=== PATIENT | female | born 1970 | race Caucasian/White ===

== ENCOUNTER 2016-09-03 16:44 | Emergency (ER) | payer OTHER | END 2016-09-03 17:35 | disposition left against medical advice (07) | LOC: UCCORT 16:44 | DX: G43.909 Migraine, unspecified, not intractable, without status migrainosus (principal) ==

== ENCOUNTER 2017-12-21 16:35 | Emergency (ER) | payer BC, OTHER ==
[2017-12-21 17:32] VITALS: BP 129/76
--- NOTE | 2017-12-21 18:02 | UC ---
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 No numbness or tingling in arms--strength equal in both arms - History of Current Complaint Chief Complaint: UCBackPain Stated Complaint: NECK PAIN Time Seen by Provider: 12/21/17 17:56 Hx Obtained From: Patient Hx Last Menstrual Period: 12/16/17 ?: No Onset/Duration Of Injury/Symptoms: Days - 2-3 Mechanism Of Injury: No Known Trauma Timing: Constant Onset/Duration: Sudden Onset Pain Intensity: 4 Pain Scale Used: 0-10 Numeric Location: Discrete At: - right lateral neck Character: Aching, Stiff, Spasmotic Aggravating Factors: Position Alleviating Factors: Position Associated Signs & Symptoms: Positive: Negative Related History: Previous Neck Injury - Allergies/Home Medications Allergies/Adverse Reactions: Allergies Allergy/AdvReac Type Severity Reaction Status Date / Time MS Cefdinir [From Omnicef] Allergy Severe hives/throat Verified 01/09/16 16:39 swelling MS Iodine [Iodine] Allergy Severe internal Verified 01/09/16 16:39 hives MS Penicillins [Penicillins] Allergy Severe via Verified 01/09/16 16:39 allergy testing MS Shellfish Allergy Allergy Severe Swelling Verified 01/09/16 16:39 [Shellfish Allergy] Of Face,Lips,& Throat MS Sodium Benzoate Allergy Severe hives/throat Verified 01/09/16 16:39 [From Omnicef] swelling MS Sulfa Drugs [Sulfa Drugs] Allergy Intermediate rash/hives/ Verified 01/09/16 16:39 tachy Home Medications: Home Medications Ibuprofen TAB* [Advil TAB*] 200 mg PO Q8H PRN 12/21/17 [History Confirmed ] PMH/Surg Hx/FS Hx/Imm Hx Previously Healthy: No Psychological History: Depression - Surgical History Surgical History: Yes Surgery Procedure, Year, and Place: lumpectomy 2002 benign, right hip surgery 2014, right knee arthroscopy 2014, sinus surgery 2014 - Family History Known Family History: Negative: Cardiac Disease - Social History Occupation: Employed Full-time Lives: With Family Alcohol Use: None Substance Use Type: None Smoking Status (MU): Never Smoked Tobacco Review Of Systems Constitutional: Positive: Negative Skin: Positive: Negative Eyes: Positive: Negative ENT: Positive: Negative Respiratory: Positive: Negative Cardiovascular: Positive: Negative Gastrointestinal: Positive: Negative Genitourinary: Positive: Negative Musculoskeletal: Positive: Arthralgia - right lateral neck Neurological: Positive: Negative Psychological: Positive: Negative All Other Systems Reviewed And Are Negative: Yes Physical Exam Triage Information Reviewed: Yes Appearance: Well-Nourished, Ill-Appearing, Pain Distress - mild Vital Signs: Initial Vital Signs Temp 99.8 F 12/21/17 17:25 Pulse 79 12/21/17 17:25 Resp 16 12/21/17 17:25 BP 129/76 12/21/17 17:25 Pulse Ox 99 12/21/17 17:25 Vital Signs Reviewed: Yes Eye Exam: Normal Eyes: Positive: Conjunctiva Clear ENT Exam: Normal ENT: Positive: Normal ENT inspection, Hearing grossly normal, TMs normal. Negative: Nasal congestion, Trismus, Muffled voice, Hoarse voice Dental Exam: Normal Neck exam: Normal Neck: Positive: Supple, Nontender, No Lymphadenopathy Respiratory Exam: Normal Respiratory: Positive: Chest non-tender, No respiratory distress, No accessory muscle use Cardiovascular Exam: Normal Cardiovascular: Positive: RRR, Pulses Normal, Brisk Capillary Refill Musculoskeletal Exam: Other Musculoskeletal: Positive: Strength Intact, No Edema, ROM Limited @ - neck Neurological Exam: Normal Neurological: Positive: Alert, Muscle Tone Normal Psychological Exam: Normal Skin Exam: Normal Diagnostics - Radiology No standard instances Xray Interpretation: No Acute Changes Radiology Interpretation Completed By: ED Physician, Radiologist - Patient Name : STEFANI DUKES Medical Record# : [id number] Ordering Physician: Gely Hendricks [employer] Acct.#: [id number] : 1970 Age: 47 Sex: F Location: [facility] Exam Date: 180 ADM Status: REG ER Order Information: SP CERVICAL 4+ VWS Accession Number: [id number] CPT: 33057 INDICATION: Neck pain. DJD. COMPARISON: July 10, 2014 TECHNIQUE: Routine five-view imaging was performed FINDINGS: Bones: There are no acute bony findings. There is bony spur formation from C5 through C7 with mild disc space narrowing at both levels.. Craniocervical junction: The odontoid and atlantodental interval are normal. Alignment: Cervical spine straightening Disc spaces: The remaining disc spaces are well-maintained Soft tissues: The prevertebral soft tissues are normal. 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 <Electronically signed by Edinson Henry MD in OV> 12/21/171844 Dictated By: Edinson Henry MD Dictated Date/Time: 12/21/171844 Transcribed Date/Time: 12/21/171843 Copy to: CC:Gely Hendricks NP; Moris Albrecht MD; Jj Holguin MD Imaging - [facility] - [facility] [address] [place] [address] ph [phone] ph ([phone] ph ([phone]) 1 of 1 Neck Pain Course/Dx - Course Course Of Treatment: flexeril, ibuprofen, exercises for neck, follow with pcp - Differential Dx/Diagnosis Provider Diagnoses: acute on chronic cervical neck pain Discharge - Sign-Out/Discharge Documenting (check all that apply): Discharge/Admit/Transfer - Discharge Plan Condition: Stable Disposition: HOME Prescriptions: Cyclobenzaprine TAB* [Flexeril 10 MG TAB*] 10 mg PO TID PRN #20 tab PRN Reason: muscle spasm and tightness Patient Education Materials: Ibuprofen (By mouth), Acute Neck Pain (ED), Warm Compress or Soak (ED) Referrals: Moris Albrecht MD [Primary Care Provider] - If Needed - Billing Disposition and Condition Condition: STABLE Disposition: Home
--- NOTE | 2017-12-21 18:49 | RAD ---
INDICATION: Neck pain. DJD. COMPARISON: July 10, 2014 TECHNIQUE: Routine five-view imaging was performed FINDINGS: Bones: There are no acute bony findings. There is bony spur formation from C5 through C7 with mild disc space narrowing at both levels.. Craniocervical junction: The odontoid and atlantodental interval are normal. Alignment: Cervical spine straightening Disc spaces: The remaining disc spaces are well-maintained Soft tissues: The prevertebral soft tissues are normal. 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
== END 2017-12-21 19:14 | disposition home or self-care (01) ==
LOC: UCCORT 16:35
DX: M54.2 Cervicalgia (principal); Z88.1 Allergy status to other antibiotic agents; Z88.3 Allergy status to other anti-infective agents; Z88.0 Allergy status to penicillin; Z88.8 Allergy status to other drugs, medicaments and biological substances
CPT/HCPCS: 72050; 99212; G0463

== ENCOUNTER 2018-02-05 15:43 | Emergency (ER) | payer BC ==
[2018-02-05 17:04] VITALS: BP 125/85
--- NOTE | 2018-02-05 18:20 | UC ---
Neck Pain HPI - HPI Summary HPI Summary: Patient states that she's had left-sided neck pain for many years. There is no history of trauma. She came to the urgent care 6 weeks ago with the same complaint and x-ray showed osteoarthritis between C6 5 and C7. Patient takes ibuprofen 800 mg every time she has pain and it does alleviate it, but recurs promptly. She feels that she is stiff in her neck, and some positions triggered the pain but she may be looking forward without tilting her neck, and the shooting pain may recur chest as well. She states that she took Benadryl yesterday for be getting and that relaxed her neck. - History of Current Complaint Chief Complaint: UCBackPain Stated Complaint: NECK PAIN Time Seen by Provider: 02/05/18 17:56 Hx Obtained From: Patient Hx Last Menstrual Period: 01/22/18 ?: Yes Mechanism Of Injury: No Known Trauma Onset/Duration: Gradual Onset, Lasting Weeks Severity: Moderate Pain Intensity: 4 Character: Dull, Stiff, Spasmotic Aggravating Factors: Position, Movement Alleviating Factors: Heat, Ice, OTC Meds Associated Signs & Symptoms: Positive: Negative - Risk Factors Meningitis Risk Factors: Negative - Allergies/Home Medications Allergies/Adverse Reactions: Allergies Allergy/AdvReac Type Severity Reaction Status Date / Time cefdinir [From Omnicef] Allergy Hives/Diff. Verified 02/05/18 17:09 Breathing/I tching iodine Allergy Hives Verified 02/05/18 17:09 Penicillins Allergy See Comment Verified 02/05/18 17:09 shellfish derived Allergy Hives Verified 02/05/18 17:09 Sulfa (Sulfonamide Allergy Hives/Diff. Verified 02/05/18 17:09 Antibiotics) Breathing/I tching Home Medications: Home Medications diphenhydrAMINE HCl [Benadryl Allergy] 25 mg PO DAILY 02/05/18 [History Confirmed 02/05/18] PMH/Surg Hx/FS Hx/Imm Hx Previously Healthy: Yes Psychological History: Depression - Surgical History Surgical History: Yes Surgery Procedure, Year, and Place: lumpectomy 2002 benign, right hip surgery 2014, right knee arthroscopy 2014, sinus surgery 2014 - Family History Known Family History: Negative: Cardiac Disease - Social History Alcohol Use: Rare Substance Use Type: None Smoking Status (MU): Never Smoked Tobacco Review Of Systems Constitutional: Positive: Negative Skin: Positive: Negative Eyes: Positive: Negative Musculoskeletal: Positive: Arthralgia, Myalgia All Other Systems Reviewed And Are Negative: Yes Physical Exam Triage Information Reviewed: Yes Appearance: Well-Appearing, Well-Nourished Vital Signs: Initial Vital Signs Temp 98.5 F 02/05/18 16:59 Pulse 77 02/05/18 16:59 Resp 15 02/05/18 16:59 BP 125/85 02/05/18 16:59 Pulse Ox 99 02/05/18 16:59 Vital Signs Reviewed: Yes Eyes: Positive: Conjunctiva Clear ENT: Positive: Hearing grossly normal Neck: Positive: No Lymphadenopathy, Tenderness @ - left supra S Cho's, limited range of motion when turning and tilting head to the left. Spurling is negative. Upper extremity strength both in flexion and extension is intact Respiratory: Positive: Chest non-tender Cardiovascular: Positive: Pulses Normal, Brisk Capillary Refill Neck Pain Course/Dx - Course Course Of Treatment: Patient's complaining of left-sided neck pain that has been present for years with current exacerbation. Advised to continue ibuprofen as needed as well as tizanidine. We'll start medication for maintenance treatment. Gabapentin has been prescribed to start on the lowest dose at night and increase the dose stepwise - Differential Dx/Diagnosis Provider Diagnoses: Left cervicalgia Discharge - Sign-Out/Discharge Documenting (check all that apply): Patient Departure All imaging exams completed and their final reports reviewed: No Studies - Discharge Plan Condition: Stable Disposition: HOME Prescriptions: Gabapentin CAP(*) [Neurontin 100 mg CAP(*)] 300 mg PO BEDTIME #30 cap tiZANidine TAB* [Zanaflex TAB*] 2 mg PO TID PRN #30 tab PRN Reason: Pain Patient Education Materials: Gabapentin (By mouth), Tizanidine (By mouth), Neck Pain (ED) Referrals: Moris Albrecht MD [Primary Care Provider] - - Billing Disposition and Condition Condition: STABLE Disposition: Home
== END 2018-02-05 18:20 | disposition home or self-care (01) ==
LOC: UCCORT 15:43
DX: M54.2 Cervicalgia (principal); Z88.3 Allergy status to other anti-infective agents; Z88.2 Allergy status to sulfonamides; Z88.0 Allergy status to penicillin; Z88.8 Allergy status to other drugs, medicaments and biological substances
CPT/HCPCS: 99212; G0463